=== PATIENT | male | born 1945 | race Caucasian/White ===

== ENCOUNTER 2016-08-17 10:00 | Day surgery (SDC) | payer MEDICARE, OTHER ==
--- NOTE | ~2016-08-17 | EGD ---
EGD REPORT [facility] [address] [place] [address] NAME: SIDNEY BERGMAN : [birth year] STATUS : [facility]#: [id number] AGE: 70 ADM/REG DATE : 08/17/16 MR#: [id number] REPORT SERV DATE: 09/10/16 DICTATED BY: SHAY LAZO DATE: 09/10/16 REPORT STATUS : Draft [facility]ANS[facility]IBED [facility]: [facility] DATE: 09/10/16 Endoscopy Center Patient Name: Sidney Bergman Date of : 1945 Attending MD: SHAY LAZO, Procedure Date No Time: 08/17/2016 Procedure: Lower EUS Indications: Pre-treatment staging for anorectal carcinoma Referring MD: BRIAN STANTON MD, NELL SANCHEZ MD, NERY AGUILAR MD Medicines: Monitored Anesthesia Care Complications: No immediate complications. Estimated blood loss: None. Procedure: Pre-Anesthesia Assessment: - ASA Grade Assessment: III - A patient with severe systemic disease. After obtaining informed consent, the endoscope was passed under direct vision. Throughout the procedure, the patient's blood pressure, pulse, and oxygen saturations were monitored continuously. The Endoscope was introduced through the anus and advanced to the sigmoid colon for ultrasound. The CF [id number] was introduced through the anus and advanced to the sigmoid colon for ultrasound. Findings: Digital rectal exam revealed a rectal mass. Endoscopic Finding : An ulcerated non-obstructing medium-sized mass was found from 5 to 8 cm proximal to the anus. The mass was partially circumferential (involving one-third of the lumen circumference). The mass measured three cm in length. Endosonographic Finding : The anal canal was normal. A hypoechoic mass was found in the rectum. The endosonographic borders were well-defined. There was sonographic evidence suggesting breakthrough of the muscularis propria with invasion into the perirectal fat (Layer 5, manifested by prominent pseudopodia). The perirectal space was normal. No lymph nodes were seen in the perirectal region. Impression: - Rectal mass. - Tumor from 5 to 8 cm proximal to the anus. Removal was not done. - Endosonographic images of the anal canal were unremarkable. EGD REPORT [address] [address] NAME: SIDNEY BERGMAN : [birth year] STATUS : [facility] PAT#: [id number] AGE: 70 ADM/REG DATE : 08/17/16 MR#: [id number] REPORT SERV DATE: 09/10/16 DICTATED BY: SHAY LAZO DATE: 09/10/16 REPORT STATUS : Draft TRANSCRIBED BY: [employer] DATE: 09/10/16 - Rectal mass was visualized endosonographically. This was staged uT3 uN0. - Endosonographic images of the perirectal space were unremarkable. - No lymph nodes were seen in the perirectal region during endosonographic examination. Recommendation: - Return to previous diet. - Continue present medications. - Return to referring physician. Procedure Code(s): --- Professional --- 14054, Sigmoidoscopy, flexible; with endoscopic ultrasound examination Diagnosis Code(s): --- Professional --- K62.89, Other specified diseases of anus and rectum D49.0, Neoplasm of unspecified behavior of digestive system C21.8, Malignant neoplasm of overlapping sites of rectum, anus and anal canal CPT copyright 2013 [employer]. All rights reserved. The codes documented in this report are preliminary and upon outpatient coder review may be revised to meet current compliance requirements. SHAY LAZO, 08/17/2016 12:06 PM Number of Addenda: 0 Note Initiated On: 08/17/2016 11:33 AM Scope Withdrawal Time 0 hours 0 minutes 0 seconds [id number] [id number]
--- NOTE | ~2016-08-17 | EGD ---
EGD REPORT [facility] [address] [place] [address] NAME: SIDNEY BERGMAN : [birth year] STATUS : [facility]#: [id number] AGE: 70 ADM/REG DATE : 08/17/16 MR#: [id number] REPORT SERV DATE: 09/10/16 DICTATED BY: SHAY LAZO DATE: 09/10/16 REPORT STATUS : Draft [facility]ANS[facility]IBED [facility]: [facility] DATE: 09/10/16 Endoscopy Center Patient Name: Sidney Bergman Date of : 1945 Attending MD: SHAY LAZO, Procedure Date No Time: 08/17/2016 Procedure: Lower EUS Indications: Pre-treatment staging for anorectal carcinoma Referring MD: BRIAN STANTON MD, NELL SANCHEZ MD, NERY AGUILAR MD Medicines: Monitored Anesthesia Care Complications: No immediate complications. Estimated blood loss: None. Procedure: Pre-Anesthesia Assessment: - ASA Grade Assessment: III - A patient with severe systemic disease. After obtaining informed consent, the endoscope was passed under direct vision. Throughout the procedure, the patient's blood pressure, pulse, and oxygen saturations were monitored continuously. The Endoscope was introduced through the anus and advanced to the sigmoid colon for ultrasound. The CF [id number] was introduced through the anus and advanced to the sigmoid colon for ultrasound. Findings: Digital rectal exam revealed a rectal mass. Endoscopic Finding : An ulcerated non-obstructing medium-sized mass was found from 5 to 8 cm proximal to the anus. The mass was partially circumferential (involving one-third of the lumen circumference). The mass measured three cm in length. Endosonographic Finding : The anal canal was normal. A hypoechoic mass was found in the rectum. The endosonographic borders were well-defined. There was sonographic evidence suggesting breakthrough of the muscularis propria with invasion into the perirectal fat (Layer 5, manifested by prominent pseudopodia). The perirectal space was normal. No lymph nodes were seen in the perirectal region. Impression: - Rectal mass. - Tumor from 5 to 8 cm proximal to the anus. Removal was not done. - Endosonographic images of the anal canal were unremarkable. EGD REPORT [address] [address] NAME: SIDNEY BERGMAN : [birth year] STATUS : [facility] [place] [place] PAT#: [id number] AGE: 70 ADM/REG DATE : 08/17/16 MR#: [id number] REPORT SERV DATE: 09/10/16 DICTATED BY: SHAY LAZO DATE: 09/10/16 REPORT STATUS : Draft TRANSCRIBED BY: [employer] DATE: 09/10/16 - Rectal mass was visualized endosonographically. This was staged uT3 uN0. - Endosonographic images of the perirectal space were unremarkable. - No lymph nodes were seen in the perirectal region during endosonographic examination. Recommendation: - Return to previous diet. - Continue present medications. - Return to referring physician. Procedure Code(s): --- Professional --- 38494, Sigmoidoscopy, flexible; with endoscopic ultrasound examination Diagnosis Code(s): --- Professional --- K62.89, Other specified diseases of anus and rectum D49.0, Neoplasm of unspecified behavior of digestive system C21.8, Malignant neoplasm of overlapping sites of rectum, anus and anal canal CPT copyright 2013 [employer]. All rights reserved. The codes documented in this report are preliminary and upon microbiology professor review may be revised to meet current compliance requirements. SHAY LAZO, 08/17/2016 12:06 PM Number of Addenda: 0 Note Initiated On: 08/17/2016 11:33 AM Scope Withdrawal Time 0 hours 0 minutes 0 seconds [id number] [id number]
[~2016-08-17 10:00] MED LIST: ALEVE220 MG PO; ASA5GR PO; IMITREX100 MG PO; LEVOTHYROXIN75 MCG PO; LIPITOR20 PO; MULTIPLE VIT PO; MULTIVITAMI1 PO; TRAZ50 PO
[2017-02-01] MEDS ORDERED: NORCO1 TA2 PO (09:15)
[2017-02-04] MEDS ORDERED: MIRALAX POWDER1 PKT PO (08:59)
[2017-03-29] MEDS ORDERED: BACTRIM DS1 TAB PO (12:23)
== END 2016-08-17 23:59 | disposition home or self-care (01) ==
LOC: DMU 10:00
PROVIDERS: Internal Medicine Gastroenterology
PROC: 0DJD8ZZ Inspection of Lower Intestinal Tract, Via Natural or Artificial Opening Endoscopic (ICD-10-PCS; principal; 2016-08-17 11:30)
DX: C21.8 Malignant neoplasm of overlapping sites of rectum, anus and anal canal (principal); K62.6 Ulcer of anus and rectum; K62.89 Other specified diseases of anus and rectum; Z88.8 Allergy status to other drugs, medicaments and biological substances
CPT/HCPCS: 71020; 76872

== ENCOUNTER 2016-11-28 10:02 | Inpatient (IN) | payer MEDICARE, OTHER ==
[2016-11-21 14:23] LABS: BASOPHILS 0.1 %; BASOPHILS ABSOLUTE 0.01 10/3/uL (0.0-0.16); EOSINOPHILS ABSOLUTE 0.07 10/3/uL (0.0-0.53); HEMATOCRIT 40.9 % (40.0-51.0); HEMOGLOBIN 13.7 g/dL (13.6-17.8); IMMATURE GRANULOCYTES 0.3 %; IMMATURE GRANULOCYTES ABSOLUTE 0.02 10/3/uL (0.0-0.11); LYMPHOCYTES 15.3 %; LYMPHOCYTES ABSOLUTE 1.04 10/3/uL (0.67-4.30); MEAN CORPUS HGB CONC 33.5 g/dL (32.0-36.0); MEAN CORPUSCULAR VOLUME 92.5 fL (80-100); MEAN PLATELET VOLUME 10.5 fL (9.2-13.0); MONOCYTES 5.9 %; NEUTROPHILS 77.4 %; NEUTROPHILS ABSOLUTE 5.24 10/3/uL (2.02-8.40); PLATELET COUNT 262 10/3/uL (150-400); RBC DISTRIBUTION WIDTH 15.8 % (12.0-16.0); RED CELL COUNT 4.42 10/6/uL (4.7-6.1); WHITE BLOOD CELLS 6.8 10/3/uL (4.5-10.5)
[2016-11-21 14:24] LABS: MANUAL DIFF NO %
[2016-11-21 14:43] LABS: BUN (BLOOD UREA NITROGEN) 21 MG/DL (6-23); CALCIUM, SERUM 9.2 MG/DL (8.5-10.4); CHLORIDE, SERUM 106 MMOL/L (96-112); CO2 (CARBON DIOXIDE) 31 MMOL/L (24-34); CREATININE 1.19 MG/DL (0.70-1.30); GFR AFRICAN AMERICAN 72 ML/MIN (>=60); GFR NON AFRICAN AMERICAN 62 ML/MIN (>=60); GLUCOSE, SERUM 91 MG/DL (60-99); POTASSIUM, SERUM 4.8 MMOL/L (3.5-5.3); SODIUM, SERUM 143 MMOL/L (135-148)
--- NOTE | ~2016-11-28 | DS ---
Discharge Summary [facility] [address] [place]. [address] NAME: KARIN BERGMAN : [birth year] STATUS : DIS IN PAT#: [id number] AGE: 71 ADM/REG DATE : 11/28/16 MR#: [id number] REPORT SERV DATE: 12/07/16 DICTATED BY: NERY FLORES DATE: 12/07/16 REPORT STATUS : Draft TRANSCRIBED BY: [facility] DATE: 12/07/16 Data Collection from hospitalization DISCHARGE DIAGNOSES: 1. Rectal cancer. 2. Hyperlipidemia. 3. Obesity. 4. History of atrial fibrillation, status post ablation x2. 5. Obstructive sleep apnea. 6. Migraines. 7. Insomnia. 8. Hypothyroidism. CONSULTATIONS: None. PROCEDURES PERFORMED: Laparoscopic hand-assisted low anterior resection with hand-sewn anastomosis and ileostomy on 11/28/2016. PATHOLOGY: Rectum colectomy - adenocarcinoma. MEDICATIONS: Aspirin 325 mg at bedtime, Lipitor 20 mg at bedtime, [place] 7.5/325 one to two tablets every four hours as needed, levothyroxine 50 mcg daily, Aleve mg every 12 hours as needed, Imitrex 100 mg as needed, and Desyrel 50 mg at bedtime. CONDITION AT DISCHARGE: Stable. DISPOSITION: The patient was discharged home to be followed by home health care on a soft diet with activities as instructed. He would follow up with me on 12/25/2016. HOSPITAL COURSE: This is a 71-year-old man who was diagnosed with rectal cancer. He had undergone neoadjuvant therapy and was six weeks post treatment and it was felt that he was ready for resection. He was admitted to the hospital at this time for further evaluation and treatment. Upon admission, he was taken to the operating room where he underwent the above-mentioned procedure. He tolerated this well, and there were no complications. On postop day #1, he was tolerating clear liquids. The Stone catheter was going to remain in place for a couple of days. On postop day #2, he was tolerating oral intake. He was afebrile. His incisions were clean, dry, and intact. There was no stool in the ileostomy bag. Stone catheter was removed. Discharge planning was performed. On 12/01/2016, he had positive ostomy output. He was tolerating his diet. He wanted to go home. The ostomy was pink. Discharge instructions were given. Due to his improved and stable condition, he was discharged home to be followed by home health care with the above-stated instructions. Information collected by: Reyna Juarez I submit the above information as my discharge summary. Discharge Summary [facility] [id number] [place]. [address] NAME: KARIN BERGMAN : [birth year] STATUS : DIS IN PAT#: [id number] AGE: 71 ADM/REG DATE : 11/28/16 MR#: [id number] REPORT SERV DATE: 12/07/16 DICTATED BY: NERY FLORES DATE: 12/07/16 REPORT STATUS : Draft TRANSCRIBED BY: RACHEAL DATE: 12/07/16 ALAINA/RACHEAL Nery Flores M.D. / [id number] CC: Nito Mcmillan M.D.
--- NOTE | ~2016-11-28 | OP ---
Record Of Operation [facility] [address] [place]. [address] NAME: KARIN BERGMAN : [birth year] STATUS : ADM IN PAT#: [id number] AGE: 70 ADM/REG DATE : 11/28/16 MR#: [id number] REPORT SERV DATE: 11/28/16 DICTATED BY: NERY FLORES DATE: 11/28/16 REPORT STATUS : Draft TRANSCRIBED BY: MODL DATE: 11/28/16 DATE OF PROCEDURE: PREPROCEDURE DIAGNOSIS: Rectal cancer status post chemoradiation. POSTPROCEDURE DIAGNOSIS: Rectal cancer status post chemoradiation. PROCEDURE: Laparoscopic hand-assisted low anterior resection with hand-sewn anastomosis and ileostomy. ASSISTANTS: Cindy and Vidya. DESCRIPTION OF THE PROCEDURE: The patient was taken to the operating room, induced under general anesthesia. Stone catheter was placed after the patient underwent proctoscopy with distal rectal washout. The tumor was palpable on the left side at 6 cm above the anal verge. On proctoscopy, the only thing that was left was a little scar. There was no intraluminal disease. The patient was washed out with a liter of saline using a Mallinckrodt catheter and then 120 mL of Betadine paint. Following this, the patient was then prepped and draped in the usual sterile fashion. A 6 cm incision was made at the level of the umbilicus. This was carried down to level of the fascia using cautery. Anterior fascia was opened between two Kochers. Posterior fascia was opened between two hemostats. The incision was extended both proximally and distally. There were adhesions of the omentum to the patient's prior appendectomy scar located in the right lower quadrant, but the wound protector was easily placed in the abdomen, tightened down to size, followed by GelPort lid. The abdomen was insufflated using a 11 mm trocar through the lid and a 30-degree scope was used. There was no evidence of metastatic disease. The adhesions were taken down from the right lower quadrant using a cautery scissors through the GelPort lid. Then, a stab incision was made of 1 cm in the right lower quadrant using a bladed 12 mm trocar. This was placed under direct laparoscopic guidance and then an 11 mm trocar placed in the right upper quadrant. Once this was accomplished, then Dr. White placed her hand in the abdomen with a moist lap pad. Keeping the small bowel, adhesions were taken down from the right lower quadrant in the epigastrium using the lap pad. The entire descending colon, splenic flexure, and sigmoid colon were mobilized completely off the retroperitoneum. The left ureter was easily identified and kept out of harm's way. At this point, then the mesentery was opened from the sacral promontory to the base of the ROYCE using cautery. Great care was taken to avoid injuring the ureter during this process, it was kept in the retroperitoneum. Then the ROYCE was transected using a white load of an Endo-MARIA D and a total mesorectal excision was performed circumferentially to the level of the anal canal. A second lap was placed posteriorly to the rectum and then at this point, insufflation was stopped. Dr. White went below. A pudendal nerve block was placed with a total of 10 mL of a 1:1 mixture of 1% lidocaine and 0.25% Sensorcaine injected locally and bilaterally. The [place] retractor was placed with 6 blue hooks and then a lighted Hill-Barker retractor small followed by medium, was placed in the anus and the rectum was transected 1 cm proximal to the dentate line circumferentially, was grasped with 2 Allis. At this point, there was excellent dissection circumferentially around the rectum and I easily entered the presacral space. The lap pad was brought out through the anus, the one that had been placed Record Of Operation [address] [place]. [address] NAME: KARIN BERGMAN : 47 STATUS : ADM IN PAT#: [id number] AGE: 70 ADM/REG DATE : 11/28/16 MR#: [id number] REPORT SERV DATE: 11/28/16 DICTATED BY: NERY FLORES DATE: 11/28/16 REPORT STATUS : Draft TRANSCRIBED BY: [employer] DATE: 11/28/16 posteriorly to the rectum and then once the rectum was transected circumferentially, it was brought out through the anus to the level of where the ROYCE was transected with the staple line. At this point, the window was made in the mesentery. The mesentery was taken with Harmonic Scalpel and then the bowel, which would be descending colon was transected with cautery. It was sewn into place in four quadrants to the anal canal, anteriorly posteriorly, right and left. The transected rectum was passed off the table and sent to Pathology. Labeled that the violation of the mesorectal fascia was during the extraction by the surgeon through the anus, then the anastomosis was created by putting 2 interrupted 2-0 Vicryl suture UR6 in between each quadrant. Once this was accomplished, Dr. White re- kristian, went above. The terminal ileum was identified, proximal to the cecum. It was measured 14 cm proximal to where it would easily hit the prior marked ileostomy site. A window was made in the mesentery and a Kendra was placed circumferentially around the small bowel and tagged. This point, the ileostomy site was created by placing a Sharad on the fascia, the dermis, and an Allis on the skin. A circular incision was made in the skin using a cut of cautery. Then this was dissected down to the level of the fascia using a linear incision. Anterior fascia was opened and the muscle fibers of the rectus were spread in order to visualize the posterior fascia, which was opened proximally and distally. A Gina was placed externally to internally grasping the [place] and bringing the loop of small bowel out the ileostomy site. There was no tension on this and the distal limb was followed back to the cecum to confirm orientation. At this point, the other lap pad was removed from the abdomen, omentum was placed over the small bowel. The 2 trocar sites were closed intracorporeally 2-0 Vicryl UR6. Seprafilm was placed over the omentum and then the fascia was closed with looped PDS proximal to middle, distal to middle, tying in the center, irrigating all wounds followed by 4-0 Monocryl subcu, followed by benzoin, Steri-Strips, 2 Band-Aids, and an airstrip. Green towel was placed over the dressings and the Kendra was switched for an ileostomy charo. At this point, the ileostomy was matured with a curvilinear incision on the antimesenteric border of the small bowel. It was brooked on the proximal aspect with interrupted 3-0 Vicryl sutures and then at the 6 o'clock position or the fourth quadrant. Simple interrupted were placed in between each quadrant. The wafer was cut to size, followed by the stoma appliance which was applied. The patient tolerated the procedure well. SEYMOUR/RACHEAL Nery Flores M.D. / [id number] CC: Nito Mcmillan IV, M.D. Steven Dowlen, M.D. Jonathan T Whaley, MD Alan Shikoh, M.D.
--- NOTE | ~2016-11-28 | HP ---
History And Physical [facility] [id number] [place]. [address] NAME: KRAIN BERGMAN : [birth year] STATUS : ADM IN [facility]#: [id number] AGE: 70 ADM/REG DATE : 11/28/16 MR#: [id number] REPORT SERV DATE: 11/28/16 DICTATED BY: NERY FLORES DATE: 11/28/16 REPORT STATUS : Draft TRANSCRIBED BY: RACHEAL DATE: 11/28/16 DATE OF ADMISSION: 11/28/2016 REASON FOR ADMISSION: Rectal cancer, low anterior resection. HISTORY OF PRESENT ILLNESS: Mr. Bergman is a 70-year-old gentleman diagnosed with rectal cancer. He underwent neoadjuvant therapy, is six weeks post treatment and is ready for resection. PAST MEDICAL HISTORY: Significant for a rectal cancer, hypothyroidism, high cholesterol, and insomnia. PAST SURGICAL HISTORY: Appendectomy in 2006. SOCIAL HISTORY: Does not smoke or drink. He is and retired. FAMILY HISTORY: Significant for brain cancer, cardiac disease, and lung cancer. ALLERGIES: CARDIZEM. MEDICATIONS: Aspirin, atorvastatin, levothyroxine, sumatriptan, and trazodone. REVIEW OF SYSTEMS: As stated in the HPI, otherwise, negative. PHYSICAL EXAMINATION: VITAL SIGNS: 70, 107/67, BMI 29.8. GENERAL: Alert elderly white male, in no acute distress. HEENT: Normocephalic, atraumatic. EOMI. PERRLA. Oropharynx is clear. NECK: Supple. No lymphadenopathy. Clear to auscultation bilaterally. HEART: Regular rate and rhythm. ABDOMEN: Soft, flat. He has the right lower quadrant incision consistent with appendectomy. : Digital rectal exam, the tumor is palpable to the left and 2 cm above the anorectal ring. It is mobile. NEUROLOGIC: Moves all extremities well. Cranial nerves 2 through 12 intact. No rashes. ASSESSMENT AND PLAN: UT3 N0 M0 adenocarcinoma of the rectum, status post neoadjuvant therapy. Plan is for low anterior resection with a hand-sewn anastomosis and diverting ileostomy. I have discussed risks, benefits, and alternatives. He understands and is willing to proceed. SEYMOUR/RACHEAL Nery History And Physical [address] [place]. [address] NAME: KARIN BERGMAN : [birth year] STATUS : ADM IN PAT#: [id number] AGE: 70 ADM/REG DATE : 11/28/16 MR#: [id number] REPORT SERV DATE: 11/28/16 DICTATED BY: NERY FLORES DATE: 11/28/16 REPORT STATUS : Draft TRANSCRIBED BY: MODL DATE: 11/28/16 Nito Flores / [id number] CC: Nery Flores M.D.
[2016-11-28 17:15] LABS: HEMATOCRIT 39.9 % (40.0-51.0); HEMOGLOBIN 13.6 g/dL (13.6-17.8)
[2016-11-29 07:28] LABS: BASOPHILS 0 %; EOSINOPHILS 0 %; HEMATOCRIT 37.6 % (40.0-51.0); HEMOGLOBIN 12.7 g/dL (13.6-17.8); IMMATURE GRANULOCYTES 0.3 %; IMMATURE GRANULOCYTES ABSOLUTE 0.05 10/3/uL (0.0-0.11); LYMPHOCYTES 2.8 %; LYMPHOCYTES ABSOLUTE 0.46 10/3/uL (0.67-4.30); MEAN CORPUS HGB CONC 33.8 g/dL (32.0-36.0); MEAN CORPUSCULAR HEMOGLOB 31.1 pg (26.0-34.0); MEAN CORPUSCULAR VOLUME 92.2 fL (80-100); MONOCYTES 7.6 %; MONOCYTES ABSOLUTE 1.24 10/3/uL (0.21-1.20); NEUTROPHILS 89.3 %; NEUTROPHILS ABSOLUTE 14.49 10/3/uL (2.02-8.40); PLATELET COUNT 219 10/3/uL (150-400); RED CELL COUNT 4.08 10/6/uL (4.7-6.1)
[2016-11-29 07:31] LABS: MANUAL DIFF NO %; WHITE BLOOD CELLS 16.2 10/3/uL (4.5-10.5)
[2016-11-29 07:40] LABS: BUN (BLOOD UREA NITROGEN) 18 MG/DL (6-23); CALCIUM, SERUM 8.2 MG/DL (8.5-10.4); CHLORIDE, SERUM 106 MMOL/L (96-112); CO2 (CARBON DIOXIDE) 28 MMOL/L (24-34); CREATININE 0.88 MG/DL (0.70-1.30); GFR AFRICAN AMERICAN 102 ML/MIN (>=60); GFR NON AFRICAN AMERICAN 88 ML/MIN (>=60); GLUCOSE, SERUM 130 MG/DL (60-99); POTASSIUM, SERUM 4.4 MMOL/L (3.5-5.3); SODIUM, SERUM 140 MMOL/L (135-148)
[2016-11-30] MEDS ORDERED: NORCO1 TA2 PO (13:40)
[2016-12-01 06:45] LABS: CALCIUM, SERUM 8.9 MG/DL (8.5-10.4); CHLORIDE, SERUM 107 MMOL/L (96-112); CO2 (CARBON DIOXIDE) 28 MMOL/L (24-34); CREATININE 0.85 MG/DL (0.70-1.30); GFR AFRICAN AMERICAN 102 ML/MIN (>=60); GFR NON AFRICAN AMERICAN 88 ML/MIN (>=60); POTASSIUM, SERUM 4.1 MMOL/L (3.5-5.3); SODIUM, SERUM 138 MMOL/L (135-148)
[2016-12-01 06:46] LABS: BUN (BLOOD UREA NITROGEN) 11 MG/DL (6-23); GLUCOSE, SERUM 83 MG/DL (60-99)
[2017-02-01] MEDS ORDERED: NORCO1 TA2 PO (09:15)
[2017-02-04] MEDS ORDERED: MIRALAX POWDER1 PKT PO (08:59)
[2017-03-29] MEDS ORDERED: BACTRIM DS1 TAB PO (12:23)
== END 2016-12-01 10:50 | disposition home health service (06) | DRG 330 ==
LOC: SDC/OF 10:02 → PACU 17:05 → 5SO 18:48
PROVIDERS: Surgery
PROC: 3E0T3CZ (ICD-10-PCS; 2016-11-28)
PROC: 0DBP4ZZ Excision of Rectum, Percutaneous Endoscopic Approach (ICD-10-PCS; principal; 2016-11-28 11:45)
PROC: 0D1B0Z4 Bypass Ileum to Cutaneous, Open Approach (ICD-10-PCS; 2016-11-28 11:45)
DX: C20 Malignant neoplasm of rectum (principal); C77.8 Secondary and unspecified malignant neoplasm of lymph nodes of multiple regions; I48.2 Chronic atrial fibrillation; E03.9 Hypothyroidism, unspecified; E78.5 Hyperlipidemia, unspecified; E66.9 Obesity, unspecified; G43.909 Migraine, unspecified, not intractable, without status migrainosus; E78.00 Pure hypercholesterolemia, unspecified; Z90.49 Acquired absence of other specified parts of digestive tract; Z80.8 Family history of malignant neoplasm of other organs or systems; Z80.1 Family history of malignant neoplasm of trachea, bronchus and lung; Z82.49 Family history of ischemic heart disease and other diseases of the circulatory system; Z88.8 Allergy status to other drugs, medicaments and biological substances; Z79.82 Long term (current) use of aspirin; Z79.899 Other long term (current) drug therapy; Z92.21 Personal history of antineoplastic chemotherapy; Z92.3 Personal history of irradiation; Z68.29 Body mass index [BMI] 29.0-29.9, adult; G47.33 Obstructive sleep apnea (adult) (pediatric)
CPT/HCPCS: 36415; 80048; 85014; 85018; 85025; 86850; 86900; 86901; 88309; 88341; 88342; 93005; A9270-GY; C1765; J0690; J2250; J2370; J2405; J2710; J2795; J3010; P9045